=== PATIENT | male | born 1955 | race African-American/Black ===

== ENCOUNTER 2022-09-07 08:04 | Emergency (ER) | payer MEDICARE, MEDICAID ==
[~2022-09-07] VITALS: Ht 167.6 cm; Wt 86.0 kg
[2022-09-07 08:09] VITALS: BP 185/100
[2022-09-07] MEDS ORDERED: SODIUM CHLORIDE 0.9% 1,000 ML IV ONE (09:00)
== END 2022-09-07 13:42 | disposition left against medical advice (07) ==
LOC: ER 08:04
DX: R22.0 Localized swelling, mass and lump, head (principal); Z00.00 Encounter for general adult medical examination without abnormal findings; I10 Essential (primary) hypertension
CPT/HCPCS: 99281; J7030